=== PATIENT | female | born 1935 | race Caucasian/White ===

== ENCOUNTER → 2016-05-20 | Outpatient (CLI) | payer OTHER, BC ==
[~2016-05-20] MED LIST: LISI-461 PO
[2016-05-20 11:20] LABS: BASO % 0.8 %; BASO ABS # 0.05 K/uL (0-0.2); COMPLETE YES; EOS % 3.4 %; IG% 0.2 %; LYMPH % 39.6 %; LYMPH ABS # 2.59 K/uL (1.2-3.4); MEAN CORPUSCULAR HGB CONC 34.8 g/dl (32-36); MEAN PLATELET VOLUME 13.3 fL (7.4-10.4); MONO % 6.9 %; NEUT % 49.1 %; PLATELET COUNT 168 K/uL (130-400); RED BLOOD COUNT 4.35 M/uL (4.2-5.4); WHITE BLOOD COUNT 6.54 K/uL (4.8-10.8)
[2016-05-20 11:45] LABS: ESTIMATED AVERAGE GLUCOSE 103 mg/dl; HA1C FLAG Normal (Normal)
[2016-05-20 11:51] LABS: ALT/SGPT 28 U/L (12-78); AST/SGOT 22 U/L (15-37); BLOOD UREA NITROGEN 26 mg/dl (7-18); BUN/CREATININE RATIO 18.9 (10-20); CALCIUM 9.1 mg/dl (8.5-10.1); CARBON DIOXIDE 28 mmol/L (21-32); CHLORIDE 105 mmol/L (98-107); GLUCOSE 73 mg/dl (70-99); POTASSIUM 4.5 mmol/L (3.5-5.1); SODIUM 141 mmol/L (136-145)
[2016-05-20 12:00] LABS: ALB/GLOB RATIO 1.1 (0.9-2); ALKALINE PHOSPHATASE 49 U/L (45-117); C-REACTIVE PROTEIN < 0.29 mg/dl (0-0.29); CHOLESTEROL 236 mg/dl (0-200); PHOSPHORUS 3.6 mg/dl (2.5-4.9)
== END | disposition home or self-care (01) ==
LOC: C.LAB 10:25
PROVIDERS: ATTEND Family Medicine
DX: R73.09 Other abnormal glucose (principal); E55.9 Vitamin D deficiency, unspecified; D51.9 Vitamin B12 deficiency anemia, unspecified

== ENCOUNTER → 2016-06-25 | Outpatient (CLI) | payer OTHER, BC | END | disposition home or self-care (01) | LOC: C.MAMM 14:17 | PROVIDERS: ATTEND Family Medicine | DX: M85.88 Other specified disorders of bone density and structure, other site (principal); M85.851 Other specified disorders of bone density and structure, right thigh; M85.852 Other specified disorders of bone density and structure, left thigh ==

== ENCOUNTER → 2016-07-08 | Outpatient (CLI) | payer OTHER, BC ==
--- NOTE | 2016-07-08 16:46 | MAMMOGRAPHY REPORT ---
BILATERAL DIGITAL SCREENING MAMMOGRAM TOMOSYNTHESIS WITH CAD: 07/08/2016 CLINICAL HISTORY: Routine screening. Patient has no complaints. TECHNIQUE: Breast tomosynthesis in addition to standard 2D mammography was performed. Current study was also evaluated with a Computer Aided Detection (CAD) system. COMPARISON: Comparison is made to exams dated: 07/25/2015 aspiration, 07/15/2015 ultrasound, 07/15/2015 mammogram, 07/08/2015 mammogram, 07/04/2014 mammogram, and 07/27/2013 stereotactic biopsy - [facility]. BREAST COMPOSITION: There are scattered areas of fibroglandular density in both breasts. FINDINGS: No suspicious masses, calcifications, or areas of architectural distortion are noted in e ither breast. There has been no significant interval change compared to prior exams. Scattered bilat eral benign-appearing calcifications are not significantly changed. A biopsy marker clip is again n oted in the right medial breast. Asymmetry seen within the left 12:00 breast middle depth is stable dating back to at least the 2008 exam, and considered benign given long-term stability. IMPRESSION: ACR BI-RADS CATEGORY 2: BENIGN There is no mammographic evidence of malignancy. A 1 year screening mammogram is recommended. The p atient will receive written notification of the results. Approximately 10% of breast cancers are not detected with mammography. A negative mammographic repor t should not delay biopsy if a clinically suggestive mass is present. Calista Parada M.D. /:07/08/2016 15:47:38 Service Shop Foreman: Diane Cerrato, [facility] [address] letter sent: Normal 1/2 BI-RADS Code: ACR BI-RADS Category 2: Benign
== END | disposition home or self-care (01) ==
LOC: C.MAMM 11:06
PROVIDERS: ATTEND Family Medicine
DX: Z12.31 Encounter for screening mammogram for malignant neoplasm of breast (principal)

== ENCOUNTER 2017-03-27 10:28 | Emergency (ER) | payer OTHER, BC ==
[~2017-03-27] VITALS: Ht 152.4 cm; Wt 55.4 kg
[2017-03-27 10:53] VITALS: TEMP 36.6; Ht 152.4 cm; Wt 55.4 kg
--- NOTE | 2017-03-27 11:35 | EMERGENCY ROOM VISIT NOTE ---
History Report prepared by Gabi: Rachid Stack Under the Supervision of: Dr. Sukhwinder Mehta M.D. First contact with patient: 11:22 Chief Complaint: MENTAL HEALTH EVALUATION Stated Complaint: MENTAL HEALTH EVALUATION History of Present Illness The patient is an 81 year old female who presents to the Emergency Room with persistent paranoid delusions that started a week ago. Per the patient's daughter, the patient has been paranoid, stating that she had been hacked. The patient has had thought processes which have been noted to be new, and she consisted of increased anxiety and panic, potentially causing a "psychotic break ", per the patient's daughter. The patient states that she lives by herself and does drive, and has never driven somewhere and then forgotten where she was driving, and she has never gotten lost going somewhere that she would go all the time. She states that she has been worrying about her finances, and wants to pass the money onto her family, but she has "descended into the protection of finances". She denies any fevers, chills, cough, congestion, nausea, vomiting , or diarrhea. The patient also denies any suicidal or homicidal ideations, or seeing or hearing things. She is a current smoker, but is trying to quit. Source of History: patient, family Onset: A week ago Position: other (global - paranoid delusions) Quality: other (possible psychotic break) Timing: other (persistent) Associated Symptoms: No fevers, No chills, No cough (or congestion), No nausea, No vomiting, No diarrhea Note: Associated symptoms: Worried about her finances. Denies SI or HI, seeing or hearing things. Review of Systems See HPI for pertinent positives and negatives. A total of ten systems were reviewed and were otherwise negative. Past Medical & Surgical Medical Problems: (1) COPD (chronic obstructive pulmonary disease) (2) HLD (hyperlipidemia) (3) Osteoporosis Family History Family history omitted secondary to patient's advanced age. Social History Smoking Status: Current Every Day Smoker Drug Use: none Housing Status: lives alone Occupation Status: retired Current/Historical Medications Scheduled Aspirin (Aspirin Ec), 81 MG PO DAILY Calcium Citrate (Calcium Citrate), 3 TABS PO DAILY Cholecalciferol (Vitamin D3), 1,000 UNITS PO DAILY Fish Oil (Cayce-3), 2 CAP PO DAILY Hctz/Lisinopril (Lisinopril/Hctz 10/12.5 Mg), 1 TAB PO DAILY Lutein ([facility] Lutein), 1 CAP PO DAILY Nebivolol Hcl (Bystolic), 10 MG PO QPM Potassium Chloride (Micro-K Ext Rel), 10 MEQ PO QPM Allergies Coded Allergies: No Known Allergies (Unverified , 03/27/17) Physical Exam Vital Signs Date Time Temp Pulse Resp B/P (MAP) Pulse Ox O2 Delivery O2 Flow Rate FiO2 03/27/17 15:35 60 16 116/47 95 03/27/17 12:52 58 18 179/86 98 Room Air 03/27/17 10:53 36.6 64 16 169/77 99 Room Air Physical Exam GENERAL: Awake, alert, well-appearing, in no distress. HENT: Normocephalic, atraumatic. Oropharynx unremarkable. EYES: Normal conjunctiva. Sclera non-icteric. NECK: Supple. No nuchal rigidity. FROM. No JVD. RESPIRATORY: Clear to auscultation. CARDIAC: Regular rate, normal rhythm. Extremities warm and well perfused. Pulses equal. ABDOMEN: Soft, non-distended. No tenderness to palpation. No rebound or guarding. No masses. RECTAL: Deferred. MUSCULOSKELETAL: Chest examination reveals no tenderness. The back is symmetrical on inspection without obvious abnormality. There is no CVA tenderness to palpation. No joint edema. LOWER EXTREMITIES: Calves are equal size bilaterally and non-tender. No edema. No discoloration. NEURO: Normal sensorium. No sensory or motor deficits noted. Mild baseline tremor. SKIN: No rash or jaundice noted. Medical Decision & Procedures ER Provider Diagnostic Interpretation: Radiology results as stated below per my review and radiologist interpretation: CT OF THE HEAD WITHOUT CONTRAST CLINICAL HISTORY: Confusion. COMPARISON STUDY: MRI of the brain November 05, 2010. CT DOSE: 537.48 mGy.cm TECHNIQUE: Helical axial images of the head were obtained without IV contrast. Automated exposure control was utilized for the study. A dose lowering technique was utilized adhering to the principles of ALARA. FINDINGS: No acute intracranial hemorrhage, midline shift or mass effect is present. Ventricular system is stable. Basilar cisterns are patent. There are no extra-axial collections. White matter hypodensities suggest moderate small vessel disease. There are no findings to suggest acute dural sinus thrombosis or acute territorial infarct. There are no significant calvarial abnormalities. Visualized portions of the sinuses and mastoid air cells are clear. IMPRESSION: No acute intracranial findings. Electronically signed by: González Rosales M.D. 03/27/2017 1:52 PM CHEST ONE VIEW PORTABLE CLINICAL HISTORY: Confusion. COMPARISON STUDY: No previous studies for comparison. FINDINGS: Evaluation is suboptimal due to difficulty positioning. Lung volumes are normal. There is no pneumothorax or pleural effusion. There is borderline cardiomegaly. There is no evidence of pulmonary edema. No lobar consolidation is identified. IMPRESSION: 1. Study compromised due to difficulty positioning. 2. No acute findings identified. Electronically signed by: González Rosales M.D. 03/27/2017 12:13 PM Dictated Date/Time: 03/27/2017 12:12 PM Laboratory Results 03/27/17 12:24 Red Blood Count 4.11, Mean Corpuscular Volume 91.5, Mean Corpuscular Hemoglobin 31.9, Mean Corpuscular Hemoglobin Concent 34.8, Mean Platelet Volume 14.0, Neutrophils (%) (Auto) 64.1, Lymphocytes (%) (Auto) 23.8, Monocytes (%) (Auto) 8.6, Eosinophils (%) (Auto) 3.0, Basophils (%) (Auto) 0.3, Neutrophils # (Auto) 5.78, Lymphocytes # (Auto) 2.15, Monocytes # (Auto) 0.78, Eosinophils # (Auto) 0.27, Basophils # (Auto) 0.03 03/27/17 12:24 Test 03/27/17 11:19 03/27/17 11:52 03/27/17 12:24 Urine Color YELLOW Urine Appearance CLEAR (CLEAR) Urine pH 7.5 (4.5-7.5) Urine Specific [place] 1.012 (1.000-1.030) Urine Protein NEG (NEG) Urine Glucose (UA) NEG (NEG) Urine Ketones NEG (NEG) Urine Occult Blood NEG (NEG) Urine Nitrite NEG (NEG) Urine Bilirubin NEG (NEG) Urine Urobilinogen NEG (NEG) Urine Leukocyte Esterase TRACE (NEG) Urine WBC (Auto) 1-5 /hpf (0-5) Urine RBC (Auto) 0-4 /hpf (0-4) Urine Hyaline Casts (Auto) 0 /lpf (0-5) Urine Epithelial Cells (Auto) >30 /lpf (0-5) Urine Bacteria (Auto) NEG (NEG) Urine Opiates Screen NEG (NEG) Urine Methadone, Qualitative NEG (NEG) Urine Barbiturates NEG (NEG) Urine Phencyclidine (PCP) Level NEG (NEG) Ur Amphetamine/Methamphetamine NEG (NEG) MDMA (Ecstasy) Screen NEG (NEG) Urine Benzodiazepines Screen NEG (NEG) Urine Cocaine Metabolite NEG (NEG) Urine Marijuana (THC) NEG (NEG) Bedside Glucose 90 mg/dl (70-90) White Blood Count 9.03 K/uL (4.8-10.8) Red Blood Count 4.11 M/uL (4.2-5.4) Hemoglobin 13.1 g/dL (12.0-16.0) Hematocrit 37.6 % (37-47) Mean Corpuscular Volume 91.5 fL (80-100) Mean Corpuscular Hemoglobin 31.9 pg (25-34) Mean Corpuscular Hemoglobin Concent 34.8 g/dl (32-36) Platelet Count 159 K/uL (130-400) Mean Platelet Volume 14.0 fL (7.4-10.4) Neutrophils (%) (Auto) 64.1 % Lymphocytes (%) (Auto) 23.8 % Monocytes (%) (Auto) 8.6 % Eosinophils (%) (Auto) 3.0 % Basophils (%) (Auto) 0.3 % Neutrophils # (Auto) 5.78 K/uL (1.4-6.5) Lymphocytes # (Auto) 2.15 K/uL (1.2-3.4) Monocytes # (Auto) 0.78 K/uL (0.11-0.59) Eosinophils # (Auto) 0.27 K/uL (0-0.5) Basophils # (Auto) 0.03 K/uL (0-0.2) RDW Standard Deviation 49.1 fL (36.4-46.3) RDW Coefficient of Variation 14.7 % (11.5-14.5) Immature Granulocyte % (Auto) 0.2 % Immature Granulocyte # (Auto) 0.02 K/uL (0.00-0.02) Anion Gap 5.0 mmol/L (3-11) Est Creatinine Clear Calc Drug Dose 25.8 ml/min Estimated GFR () 44.3 Estimated GFR (Non- 38.3 BUN/Creatinine Ratio 15.7 (10-20) Calcium Level 8.7 mg/dl (8.5-10.1) Total Bilirubin 0.7 mg/dl (0.2-1) Direct Bilirubin 0.2 mg/dl (0-0.2) Aspartate Amino Transf (AST/SGOT) 45 U/L (15-37) Alanine Aminotransferase (ALT/SGPT) 29 U/L (12-78) Alkaline Phosphatase 39 U/L (45-117) Total Protein 7.4 gm/dl (6.4-8.2) Albumin 3.8 gm/dl (3.4-5.0) Globulin 3.6 gm/dl (2.5-4.0) Albumin/Globulin Ratio 1.1 (0.9-2) Vitamin B12 Level 1391 pg/mL (211-911) Folate 14.49 ng/mL (>5.38) Thyroid Stimulating Hormone (TSH) 1.610 uIu/ml (0.300-4.500) Ethyl Alcohol mg/dL < 3.0 mg/dl (0-3) Laboratory results reviewed by me ECG Indication: altered mental status Rate (beats per minute): 51 Rhythm: sinus bradycardia (with sinus arrhythmia) Findings: no acute ischemic change, other (normal intervals, poor baseline) ED Course 1126: The patient was evaluated in room A5. A complete history and physical exam was performed. 1517: I reevaluated the patient and she is resting comfortably. Discussed results and discharge instructions: she verbalized understanding and agreement. The patient is ready for discharge. Medical Decision I reviewed the patient's past medical history, medications, and the nursing notes as described above. Differential diagnosis includes but is not limited to: pneumonia, bronchitis, UTI, dehydration, electrolyte abnormalities, dementia, stroke. The patient is an 81 y/o woman who presents to the Emergency Department with her daughter accompanying concerned for worsening confusion, delusional and paranoid thoughts over the past week in the setting of increasing forgetfulness over the past year per HPI. On arrival the patient is well-appearing, AFVSS. Patient has somewhat tangential thoughts but able to be redirected and answer questions appropriately. Patient has good insight into her symptoms and reports saying she feels overwhelmed with anxiety sometimes and feels as though her credit card was hacked and that a car was driving in her neighborhood was "spying". Otherwise, the patient is neuro intact. Labs unremarkable. CXR negative. Patient medically cleared. Patient evaluated by psych case management and we agree that patient is appropriate for further management in the outpatient setting for what is likely evolving dementia. Patient and daughter were advised that the patient should no longer drive until she is able to be further evaluated by her doctor. Family in the meantime will assist the patient at home with daily task such as shopping and bills. Findings and plan for follow -up reviewed with patient. Patient agreeable and d/c'd per discharge instructions. Medication Reconcilliation Current Medication List: was personally reviewed by me Blood Pressure Screening Patient's blood pressure: Elevated blood pressure Blood pressure disposition: Elevated BP felt to be situational Impression Primary Impression: Dementia Scribe Attestation The scribe's documentation has been prepared under my direction and personally reviewed by me in its entirety. I confirm that the note above accurately reflects all work, treatment, procedures, and medical decision making performed by me. Departure Information Dispostion Home / Self-Care Referrals Cecilio Motta M.D. (PCP) Forms HOME CARE DOCUMENTATION FORM, IMPORTANT VISIT INFORMATION Patient Instructions Delirium and Dementia Difference, Dementia, Dementia Coping Tips Caregiver, My [facility] Additional Instructions Please follow up with your primary care physician on Wednesday for re-evaluation. Your symptoms are likely related to dementia. Do not drive until further evaluated by your doctor. Otherwise, your exam, EKG, chest xray, CT scan, and lab results did not show signs of an emergent condition at this time. Return to the emergency department for worsening symptoms as described in the accompanying instructions.
[2017-03-27 11:56] LABS: URINE APPEARANCE CLEAR (CLEAR); URINE BILIRUBIN NEG (NEG); URINE COLOR YELLOW; URINE EPITHELIAL CELL AUTO >30 /lpf (0-5); URINE NITRITE NEG (NEG); URINE PH 7.5 (4.5-7.5); URINE SPECIFIC GRAVITY 1.012 (1.000-1.030); UROBILINOGEN NEG (NEG)
[2017-03-27 11:58] LABS: MANUAL MICROSCOPIC REQUIRED? NO; REVIEW REQ? NO
--- NOTE | 2017-03-27 12:14 | DIAGNOSTIC IMAGING REPORT ---
CHEST ONE VIEW PORTABLE CLINICAL HISTORY: Confusion. COMPARISON STUDY: No previous studies for comparison. FINDINGS: Evaluation is suboptimal due to difficulty positioning. Lung volumes are normal. There is no pneumothorax or pleural effusion. There is borderline cardiomegaly. There is no evidence of pulmonary edema. No lobar consolidation is identified. IMPRESSION: 1. Study compromised due to difficulty positioning. 2. No acute findings identified. Electronically signed by: González Rosales M.D. 03/27/2017 12:13 PM Dictated Date/Time: 03/27/2017 12:12 PM
[2017-03-27 12:22] LABS: BENZODIAZEPINE, URINE NEG (NEG); COCAINE,URINE NEG (NEG); PHENCYCLIDINE, URINE NEG (NEG)
[2017-03-27 12:52] LABS: BASO % 0.3 %; BASO ABS # 0.03 K/uL (0-0.2); COMPLETE YES; HEMATOCRIT 37.6 % (37-47); IG% 0.2 %; LYMPH % 23.8 %; LYMPH ABS # 2.15 K/uL (1.2-3.4); MEAN CELL VOLUME 91.5 fL (80-100); MEAN CORPUSCULAR HEMOGLOBIN 31.9 pg (25-34); MEAN CORPUSCULAR HGB CONC 34.8 g/dl (32-36); MONO % 8.6 %; NEUT % 64.1 %; PLATELET COUNT 159 K/uL (130-400); RED BLOOD COUNT 4.11 M/uL (4.2-5.4); WHITE BLOOD COUNT 9.03 K/uL (4.8-10.8)
[2017-03-27 13:16] LABS: BUN/CREATININE RATIO 15.7 (10-20); CALCIUM 8.7 mg/dl (8.5-10.1); CREATININE 1.29 mg/dl (0.60-1.20); POTASSIUM 3.7 mmol/L (3.5-5.1)
[2017-03-27 13:27] LABS: ALB/GLOB RATIO 1.1 (0.9-2); THYROID STIMULATING HORMONE 1.61 uIu/ml (0.300-4.500)
--- NOTE | 2017-03-27 13:53 | DIAGNOSTIC IMAGING REPORT ---
CT OF THE HEAD WITHOUT CONTRAST CLINICAL HISTORY: Confusion. COMPARISON STUDY: MRI of the brain November 05, 2010. CT DOSE: 537.48 mGy.cm TECHNIQUE: Helical axial images of the head were obtained without IV contrast. Automated exposure control was utilized for the study. A dose lowering technique was utilized adhering to the principles of ALARA. FINDINGS: No acute intracranial hemorrhage, midline shift or mass effect is present. Ventricular system is stable. Basilar cisterns are patent. There are no extra-axial collections. White matter hypodensities suggest moderate small vessel disease. There are no findings to suggest acute dural sinus thrombosis or acute territorial infarct. There are no significant calvarial abnormalities. Visualized portions of the sinuses and mastoid air cells are clear. IMPRESSION: No acute intracranial findings. Electronically signed by: González Rosales M.D. 03/27/2017 1:52 PM Dictated Date/Time: 03/27/2017 1:50 PM
[2017-03-27] MEDS ORDERED: ASPI81TA28 PO (14:32)
[2017-03-27] MEDS ORDERED: CALC250T8 PO (14:32)
[2017-03-27] MEDS ORDERED: NEBI10TA2 PO (14:32)
[2017-03-27] MEDS ORDERED: CHOL1000 PO (14:32)
[2017-03-27] MEDS ORDERED: LSN/10125 PO (14:32)
[2017-03-27] MEDS ORDERED: LUTE6CAP9 PO (14:32)
[2017-03-27] MEDS ORDERED: OMEG10007 PO (14:32)
[2017-03-27] MEDS ORDERED: POTA10CA28 PO (14:32)
[2017-03-27 15:35] VITALS: BP 116/47; PULSE 60; O2SAT 95
== END 2017-03-27 15:36 | disposition home or self-care (01) ==
LOC: C.EDB 10:30 → C.EDA 15:36
DX: F03.90 Unspecified dementia, unspecified severity, without behavioral disturbance, psychotic disturbance, mood disturbance, and anxiety (principal); J44.9 Chronic obstructive pulmonary disease, unspecified; M81.0 Age-related osteoporosis without current pathological fracture; F17.200 Nicotine dependence, unspecified, uncomplicated; Z79.82 Long term (current) use of aspirin